=== PATIENT | female | born 1980 | race Caucasian/White ===

== ENCOUNTER 2019-04-20 05:55 | Inpatient (IN) ==
--- NOTE | 2019-04-14 08:52 | Anesthesiology Consultation ---
Date of Service April 14, 2019 History Surgery Operation Date: 04/20/19 07:30 Proposed Procedures p C6-C7 Anterior Cervical Disectomy and Fusion with Iliac Crest Bone Graft - Marito Barnett DO Height/Weight Height: 5 ft 2 in Weight: 50.802 kg Allergies Allergy/AdvReac Type Severity Reaction Status Date / Time No Known Allergies Allergy Verified 04/02/19 12:28 Medications Home Medications Medication Instructions Recorded Confirmed Last Taken albuterol sulfate 1 inh INHALATION QID PRN 04/02/19 04/02/19 Unknown bupropion HCl [Wellbutrin SR] 150 mg PO BID 04/02/19 04/02/19 Unknown gabapentin 200 mg PO TID 04/02/19 04/02/19 Unknown Past Medical History Medical History Anxiety Asthma INHALER PRN (ONCE/MONTHLY TYPICALLY) Depression History of posttraumatic stress disorder (PTSD) Neck pain Past Family History Family History Father Family history of diabetes mellitus Grandfather (Maternal) Family history of esophageal cancer Past Surgical History Surgical History History of History of adenoidectomy History of hip surgery B/L History of ureter stent CHILDHOOD (2/2 "LEAK IN THE TUBE") Status post myringotomy with insertion of tube STOP BANG Total 1 Social History Smoking Status: Current every day smoker tobacco type: cigarettes Smoking cigarettes per day: 1/2 ppd Do You Dip or Chew Tobacco: No Hx Alcohol Use: No Hx Substance Use: No substance use type: does not use Testing Laboratory Results 04/10/19 WBC 6.21 H/H 14.5/40.9 PLATELETS 260 Chest X-Ray Date: 04/10/19 Findings: + NAD
--- NOTE | 2019-04-14 14:18 | History and Physical Report ---
DATE OF ADMISSION: 04/20/2019 CHIEF COMPLAINT: Neck pain, arm pain, weakness. HISTORY OF PRESENT ILLNESS: Pretty is delightful. She is 39. She is miserable. She has significant cervical radiculopathy with profound weakness to her upper extremity. PAST MEDICAL HISTORY: Negative for hypertension, COPD, diabetes, kidney disease. PAST SURGICAL HISTORY: Includes 2 hip surgeries. ALLERGIES: Negative. FAMILY HISTORY: Negative. SOCIAL HISTORY: She is single. No alcohol. Works. One-pack of cigarette smoking a day for 15 years. Active lifestyle. REVIEW OF SYSTEMS: Twelve-system review is negative for fevers, sweats, chills. Ear, nose and throat negative. Denies chest pain or palpitations. No asthma or wheezing. No nausea, vomiting, urgency, or frequency. Has sleep problems primarily. She has numbness, tingling, cramping, muscle pain associated weakness. MEDICATIONS: Gabapentin and Wellbutrin. PHYSICAL EXAMINATION: GENERAL: She is 5 feet 2 inches, 107. She is alert, oriented. VITAL SIGNS: Blood pressure 130/80, pulse 80, respirations 16. HEENT: Pupils react to light and accommodation. Ear, nose and throat clear. CARDIAC: Normal S1, S2. No S3. LUNGS: Clear to auscultation. No rales, rhonchi, or wheezing. ABDOMEN: Soft and nontender. Bowel sounds present in all quadrants. NEUROLOGIC: Demonstrates weakness to triceps musculature on the right hand side. Positive Spurling maneuver. Positive Lhermitte sign. IMAGES: Demonstrated a large disc herniation in the cervical spine at C6-C7. IMPRESSION: Disc herniation in the cervical spine. PLAN: Includes an ACDF of cervical spine with iliac crest at C6-C7.
[2019-04-20] MEDS ORDERED: CEFAZOLIN 2000MG 2,000 MG/15 ML SYR IV SCH (06:00)
[2019-04-20] MEDS ORDERED: LR 15ML/HR IV SCH (06:00)
[2019-04-20] MEDS ORDERED: SODIUM CHLORIDE 0.9% 1000ML IV SCH (06:00)
[2019-04-20] MEDS ORDERED: LR 500ML BOLUS IV SCH (06:00)
[2019-04-20] MEDS ORDERED: BUPIVACAINE/EPINEPHRINE 0.5% MPF 1:200,000 30 ML VIAL ONE ×2 (06:55→07:00)
[2019-04-20] MEDS ORDERED: THROMBIN FOR SOLN 20000 UNIT KIT ONE (06:56)
[2019-04-20] MEDS ORDERED: GELATIN SPONGE SZ 100 ONE (06:56)
[2019-04-20] MEDS ORDERED: BACITRACIN INJ 50,000 UNIT VIAL ONE (06:56)
[2019-04-20] MEDS ORDERED: fentaNYL citrate 100 MCG/2 ML VIAL ONE ×2 (06:59→07:55)
[2019-04-20] MEDS ORDERED: DEXAMETHASONE SOD INJ 4 MG/ML VIAL ONE (06:59)
[2019-04-20] MEDS ORDERED: NEOSTIGMINE METHYLSULFATE 5 MG/5 ML SYR ONE (06:59)
[2019-04-20] MEDS ORDERED: GLYCOPYRROLATE 0.2 MG/ML VIAL ONE (06:59)
[2019-04-20] MEDS ORDERED: LIDOCAINE HCL 2% 2 ML VIAL/AMP(20MG/ML) INFIL ONE (06:59)
[2019-04-20] MEDS ORDERED: PROPOFOL IV EMULSION 10 MG/ML 20 ML VIAL IV ONE (06:59)
[2019-04-20] MEDS ORDERED: MIDAZOLAM HCL 1 MG/ML 2ML VIAL ONE (06:59)
[2019-04-20] MEDS ORDERED: ONDANSETRON INJ 2 MG/ML 2 ML VIAL ONE (06:59)
--- NOTE | 2019-04-20 07:17 | History & Physical Bridge Note ---
Date of Service April 20, 2019 History & Physical Bridge Note I have examined the patient, reviewed the History & Physical and in the interval since the performance of the History & Physical I have noted the following changes of clinical significance: no changes noted
[2019-04-20] MEDS ORDERED: ePHEDrine sulfate 50 MG/ML AMP IV PRN (07:25)
[2019-04-20] MEDS ORDERED: ATROPINE SULFATE 0.1 MG/ML 10ML SYR IV PRN (07:25)
[2019-04-20] MEDS ORDERED: ROCURONIUM BROMIDE 10 MG/ML 5 ML VIAL ONE (08:02)
--- NOTE | 2019-04-20 09:04 | Fluoroscopy Report ---
FL spine 1V any level HISTORY: Fusion. FLUOROSCOPY TIME: 13 seconds. FINDINGS: Intraoperative fluoroscopy was provided for the cervical spine. 3 fluoroscopic spot images were obtained. Image intensifier support for an anterior cervical fusion of the C6-C7 level. IMPRESSION: Fluoroscopy provided for a C6-C7 anterior fusion. The above report was generated using voice recognition software. It may contain grammatical, syntax or spelling errors. Electronically signed by: Doc Sanders M.D. 04/20/2019 9:02 AM
--- NOTE | 2019-04-20 09:06 | Post Operative Brief Note ---
Immediate Post Op Note v1 Date of Surgery April 20, 2019 Pre & Post Diagnosis Operation Date: 04/20/19 07:30 Pre-Op Diagnosis: Disc herniation in the cervical spine Post-Op Diagnosis: Disc herniation in the cervical spine Procedure Operation Date: 04/20/19 07:30 Actual Procedures p C6-C7 Anterior Cervical Disectomy and Fusion with Left Iliac Crest Bone Graft(Not Applicable) - Marito Barnett DO Surgeon Marito Barnett DO [employer] Clerk aren Estimated Blood Loss 10 Findings Consistent with Post-Op Diagnosis Drains [place] Drain Complications none Disposition Accompanied Patient To Recovery: Yes Overlapping Procedure I was immediately available: during the entire case.
[2019-04-20] MEDS: HYDROmorphone INJ 1 MG/ML SYRINGE IV PRN ×11 (09:27→10:20)
[2019-04-20] MEDS ORDERED: ACETAMINOPHEN 1000 MG/100 ML IV IV ONE (09:57)
[2019-04-20] MEDS ORDERED: ACETAMINOPHEN 1,000 MG/100 ML VIAL IV STA (09:57)
[2019-04-20] MEDS ORDERED: HYDROmorphone INJ 0.5 MG/0.5 ML SYR IV PRN ×2 (10:16→11:08)
[2019-04-20] MEDS ORDERED: HYDROmorphone INJ 1 MG/ML SYRINGE IV PRN (11:08)
[2019-04-20] MEDS ORDERED: MAGNESIUM HYDROXIDE SUSP 30 ML UDC PO PRN (11:08)
[2019-04-20] MEDS ORDERED: RACEPINEPHRINE 2.25% NEBU SOLN 0.5 ML VIAL INH PRN (11:08)
[2019-04-20] MEDS ORDERED: NALOXONE HCL 0.4 MG/1 ML VIAL/CARP IV PRN (11:08)
[2019-04-20] MEDS ORDERED: ONDANSETRON INJ 2 MG/ML 2 ML VIAL IV PRN (11:08)
[2019-04-20] MEDS ORDERED: DEXAMETHASONE SOD PHOSPHATE 8 MG in SYRINGE 0 ML IV PRN (11:08)
[2019-04-20] MEDS ORDERED: DiphenhydrAMINE HCL 50 MG/ML VIAL IV PRN (11:08)
[2019-04-20] MEDS ORDERED: ACETAMINOPHEN 1,000 MG/100 ML VIAL IV PRN (11:08)
[2019-04-20] MEDS ORDERED: FLUMAZENIL 0.1 MG/1 ML 10 ML VIAL ONE (11:13)
[2019-04-20] MEDS ORDERED: ALBUTEROL HFA INHALER 8.5 GM INH PRN (11:30)
--- NOTE | 2019-04-20 12:29 | Anesthesiology Progress Note ---
Date of Service April 20, 2019 Anesthesia Post Procedure Vital Signs Vital Signs: Temp Pulse Pulse Pulse Resp BP Pulse Ox 04/20/19 12:04 61 18 118/76 100 04/20/19 11:33 62 18 122/75 100 04/20/19 11:30 62 16 100 04/20/19 11:14 36.7 C 73 18 126/82 2 L 04/20/19 10:35 36.2 C L 71 19 128/82 99 04/20/19 10:25 69 19 140/86 95 04/20/19 10:15 66 16 140/75 100 04/20/19 10:05 90 16 161/89 H 98 04/20/19 09:55 71 16 151/84 H 99 04/20/19 09:45 71 16 165/87 H 99 04/20/19 09:35 78 16 146/90 H 99 04/20/19 09:25 88 16 141/82 H 100 04/20/19 09:15 36.5 C 87 16 141/87 H 100 04/20/19 06:16 36.7 C 74 16 136/82 99 Pain Intensity Left Hip: Pain Intensity: 2 Transfer of Care Handoff Completed per policy Notes Mental Status: alert / awake / arousable Patient Amnestic to Procedure: Yes Nausea / Vomiting: adequately controlled Pain: adequately controlled Airway Patency, RR, SpO2: stable & adequate BP & HR: stable & adequate Hydration State: stable & adequate Anesthetic Complications: no major complications apparent and Pt Satisfied with anesthetic care
[2019-04-20] MEDS: LACTATED RINGER'S 1,000 ML IV SCH (12:36)
[2019-04-20] MEDS: GABAPENTIN 100 MG CAP PO SCH ×2 (14:12→20:06)
[2019-04-20] MEDS: CEFAZOLIN 1000MG 1,000 MG/7.5 ML SYR IV SCH ×2 (14:36→22:07)
[2019-04-20] MEDS: OXYCODONE HCL IR 5 MG TAB (IMMEDIATE RELEASE) PO PRN (15:01)
--- NOTE | 2019-04-20 16:19 | Operative Report ---
DATE OF OPERATION: 04/20/2019 PREOPERATIVE DIAGNOSIS: Cervical disc herniation, C6-C7 cervical spine. POSTOPERATIVE DIAGNOSIS: Cervical disc herniation, C6-C7 cervical spine. SURGEON: Marito Barnett DO DIRECTOR PRIVATE: Landon Haddad PA-C. COMPLICATIONS: Zero. BLOOD LOSS: 10 mL. IMPLANTS USED: By the [employer]. DESCRIPTION OF PROCEDURE: Prior to the patient being brought back to the operating room, she was marked in the preop holding area and identified a bridge note provided. She was taken to the operating room, a general intubated anesthetic provided to the patient, kept supine position. We scrubbed, prepped and draped sterile both her iliac crest and cervical spine. Formal timeout taken. I made a skin incision, fascial incision. I was able to use a classic approach to the anterior aspect of the cervical spine. I came down on the vertebral level. First, I was at C7-T1 and I went up 1 level to 6-7 the cervical spine, the pathologic level. We then did a formal discectomy, used a 15 scalpel blade, pituitary rongeurs, different size curettes and completely evacuated this area. I tried to undercut the vertebrae at 7 in mild degree, really emphasized the foraminotomy. All visible disc material was removed using 3.5 magnification. There was nothing left either the left side or right side. I prepared the implants. I then made a skin incision, fascial incision over the left iliac crest, harvested a structural autograft for this area. This was placed into the discectomy site at C6-C7. The fit was anatomic. ____ plate 14 mm in length. This was placed over the construct. It fit well. Cross table C-arm images were excellent. We began our closure. First, we irrigated. We closed over a [place] drain in interrupted manner. Sterile dressings applied. Collar applied. The patient extubated to PACU stable. There were no apparent intraoperative complications or anesthetic complications. I attest to the content of the Intraoperative Record and any orders documented therein. Any exception s are noted below.
[2019-04-20] MEDS: DOCUSATE SODIUM 100 MG CAP PO SCH (20:05)
[2019-04-20] MEDS: BuPROPion SR 150 MG TABCR PO SCH (20:06)
[2019-04-21] MEDS: LACTATED RINGER'S 1,000 ML IV SCH (00:04)
[2019-04-21] MEDS: OXYCODONE HCL IR 5 MG TAB (IMMEDIATE RELEASE) PO PRN ×3 (00:04→10:12)
[2019-04-21] MEDS: CEFAZOLIN 1000MG 1,000 MG/7.5 ML SYR IV SCH (06:04)
--- NOTE | 2019-04-21 08:07 | Anesthesiology Progress Note ---
Date of Service April 21, 2019 Anesthesia Post Procedure Vital Signs Vital Signs: Temp Pulse Pulse Pulse Pulse Resp BP 04/21/19 07:22 56 L 14 04/21/19 06:52 36.7 C 54 L 15 108/69 04/21/19 06:00 36.8 C 59 L 14 101/68 04/21/19 04:04 83 18 04/21/19 03:59 36.6 C 59 L 14 97/58 L 04/21/19 02:05 36.8 C 63 14 96/58 L 04/21/19 00:00 36.3 C L 82 18 100/68 04/20/19 23:10 58 L 16 04/20/19 22:05 36.6 C 57 L 16 101/62 04/20/19 20:00 36.6 C 57 L 12 106/70 04/20/19 19:15 57 L 16 04/20/19 17:51 36.7 C 57 L 16 114/75 04/20/19 16:02 36.4 C L 57 L 16 117/77 04/20/19 15:22 53 L 16 04/20/19 14:03 62 18 112/70 04/20/19 12:59 36.4 C L 77 17 112/74 04/20/19 12:04 61 18 118/76 04/20/19 11:33 62 18 122/75 04/20/19 11:30 62 16 04/20/19 11:14 36.7 C 73 18 126/82 04/20/19 10:35 36.2 C L 71 19 128/82 04/20/19 10:25 69 19 140/86 04/20/19 10:15 66 16 140/75 04/20/19 10:05 90 16 161/89 H 04/20/19 09:55 71 16 151/84 H 04/20/19 09:45 71 16 165/87 H 04/20/19 09:35 78 16 146/90 H 04/20/19 09:25 88 16 141/82 H 04/20/19 09:15 36.5 C 87 16 141/87 H Pulse Ox 04/21/19 07:22 98 04/21/19 06:52 97 04/21/19 06:00 97 04/21/19 04:04 98 04/21/19 03:59 98 04/21/19 02:05 96 04/21/19 00:00 99 04/20/19 23:10 99 04/20/19 22:05 100 04/20/19 20:00 100 04/20/19 19:15 98 04/20/19 17:51 100 04/20/19 16:02 203 H 04/20/19 15:22 100 04/20/19 14:03 100 04/20/19 12:59 99 04/20/19 12:04 100 04/20/19 11:33 100 04/20/19 11:30 100 04/20/19 11:14 2 L 04/20/19 10:35 99 04/20/19 10:25 95 04/20/19 10:15 100 04/20/19 10:05 98 04/20/19 09:55 99 04/20/19 09:45 99 04/20/19 09:35 99 04/20/19 09:25 100 04/20/19 09:15 100 Pain Intensity Left Hip: Pain Intensity: 4 Notes Mental Status: alert / awake / arousable and participated in evaluation Nausea / Vomiting: adequately controlled Pain: adequately controlled Airway Patency, RR, SpO2: stable & adequate BP & HR: stable & adequate Hydration State: stable & adequate
[2019-04-21] MEDS: BuPROPion SR 150 MG TABCR PO SCH (08:31)
[2019-04-21] MEDS: GABAPENTIN 100 MG CAP PO SCH (08:32)
[2019-04-21] MEDS: DOCUSATE SODIUM 100 MG CAP PO SCH (08:32)
--- NOTE | 2019-04-22 01:43 | Discharge Summary ---
She is alert, oriented this morning, taking p.o. liquids only. Her pain is controlled. She still has Cortez catheter. She has had a relatively uneventful postoperative course. She is now out about 22 hours from surgery. DISPOSITION: She will be discharged home later this morning. We will change her dressing, pull her drains, we will also take out her Cortez catheter. She has an appointment in the office in approximately 10 days. She is to call the office to verify the appointment date and time. She has a prescription for [place] on her chart. She has a cervical collar and she was given instructions, precautions here in the hospital and in the office.
[2019-04-22] MEDS ORDERED: BISACODYL 5 MG TABEC PO PRN (09:25)
[2019-04-22] MEDS ORDERED: POLYETHYLENE (MIRALAX) 17 GM PACK PO PRN (09:25)
== END 2019-04-21 11:12 | disposition home or self-care (01) | DRG 473 ==
LOC: ASU 05:55 → 3E 09:48